=== PATIENT | female | born 1990 | race American Indian/Alaskan Native ===

== ENCOUNTER 2021-06-30 15:38 | Emergency (ER) | payer OTHER ==
[2021-06-30] MEDS ORDERED: BUTALB/ACETAMINOPHEN/CAFFEINE TAB PO ONE (19:35)
[2021-06-30] MEDS ORDERED: predniSONE 20 MG TAB PO ONE (19:35)
[2021-06-30] MEDS ORDERED: IBUPROFEN 600 MG TAB PO ONE (19:35)
--- NOTE | 2021-06-30 19:41 | Emergency Department Report ---
- General Chief Complaint: Sore Throat Stated Complaint: BODY PAINS Source: patient Mode of arrival: Ambulatory Limitations: No Limitations - History of Present Illness Initial Comments: Patient is a 30-year-old -[place] female with a history of morbid obesity presents to the ED with complaint of acute onset persistent nasal and sinus congestion, frontal sinus pressure and headache, sore throat, diffuse body aches and pains, subjective fever and chills and mild dry cough for the last 2 days, worse in the last 12 hours. Patient states that she has been taking [id number] decongestants with no relief. Patient states that no one else at home has had similar symptoms although her children started experiencing the symptoms in the last 8 hours. 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 Patient denies dizziness, syncope, chest pain or shortness of breath, nausea and vomiting or diarrhea, loss of taste or smell, lack of appetite, abdominal pain, dysuria, urine frequency and urgency, neck pain or change in vision. MD Complaint: fever, cough, sore throat, rhinorrhea, nasal congestion, sinus pain, other (Body aches) -: Sudden, days(s) (2) Severity: severe Severity scale (0 -10): 7 Quality: sharp, aching Consistency: constant Improves With: nothing Worsens With: nothing Context: sick contacts Associated Symptoms: denies other symptoms, fever, chills, myalgias, headache, rhinorrhea, nasal congestion, sore throat, cough. denies: chest pain, shortness of breath, abdominal pain, nausea, vomiting, diarrhea, dysuria, rash, confusion, right sweats, weight loss, epistaxis, hoarseness, ear pain, other Treatments Prior to Arrival: "cold medicine" - Related Data Previous Rx's Medication Instructions Recorded Last Taken Type Ascorbic Acid [Vitamin C] 1,000 mg PO Q12H #30 tablet 06/30/21 Unknown Rx Azithromycin [Zithromax Z-PRAVIN] 250 mg PO DAILY #6 tablet 06/30/21 Unknown Rx Butalb/Acetamin/Caff 50-325-40 1 - 2 tab PO Q6HR PRN #15 tab 06/30/21 Unknown Rx [Fioricet 50-325-40] Cetirizine HCl [Zyrtec 10mg tab] 10 mg PO DAILY #30 tablet 06/30/21 Unknown Rx Ibuprofen [Motrin] 600 mg PO Q8H PRN #30 tablet 06/30/21 Unknown Rx Lidocaine Viscous 2% 10 ml PO Q6H PRN #120 ml 06/30/21 Unknown Rx Ondansetron [Zofran Odt] 4 mg PO Q8HR PRN #15 tab.rapdis 06/30/21 Unknown Rx Allergies Allergy/AdvReac Type Severity Reaction Status Date / Time No Known Allergies Allergy Unverified 06/30/21 18:04 ED Review of Systems ROS: Stated complaint: BODY PAINS Other details as noted in HPI Constitutional: chills, fever, malaise Eyes: denies: eye pain, eye discharge, vision change ENT: throat pain, congestion, other (Severe frontal sinus pressure and headache). denies: ear pain Respiratory: cough. denies: shortness of breath, wheezing Cardiovascular: denies: chest pain, palpitations Endocrine: no symptoms reported Gastrointestinal: denies: abdominal pain, nausea, diarrhea Genitourinary: denies: urgency, dysuria, discharge Musculoskeletal: arthralgia, myalgia. denies: back pain, joint swelling Skin: denies: rash, lesions Neurological: headache (Frontal headache). denies: weakness, paresthesias Psychiatric: denies: anxiety, depression Hematological/Lymphatic: denies: easy bleeding, easy bruising ED Past Medical Hx - Past Medical History Previous Medical History?: No Additional medical history: denies - Surgical History Past Surgical History?: Yes Additional Surgical History: hernia repair - Medications Home Medications: Home Medications Medication Instructions Recorded Confirmed Last Taken Type Ascorbic Acid [Vitamin C] 1,000 mg PO Q12H #30 tablet 06/30/21 Unknown Rx Azithromycin [Zithromax Z-PRAVIN] 250 mg PO DAILY #6 tablet 06/30/21 Unknown Rx Butalb/Acetamin/Caff 50-325-40 1 - 2 tab PO Q6HR PRN #15 tab 06/30/21 Unknown Rx [Fioricet 50-325-40] Cetirizine HCl [Zyrtec 10mg tab] 10 mg PO DAILY #30 tablet 06/30/21 Unknown Rx Ibuprofen [Motrin] 600 mg PO Q8H PRN #30 tablet 06/30/21 Unknown Rx Lidocaine Viscous 2% 10 ml PO Q6H PRN #120 ml 06/30/21 Unknown Rx Ondansetron [Zofran Odt] 4 mg PO Q8HR PRN #15 tab.rapdis 06/30/21 Unknown Rx ED Physical Exam - General Limitations: No Limitations General appearance: alert, in no apparent distress - Head Head exam: Present: atraumatic, normocephalic, normal inspection - Eye Eye exam: Present: normal appearance, PERRL, EOMI Pupils: Present: normal accommodation - ENT ENT exam: Present: mucous membranes moist, TM's normal bilaterally, normal external ear exam, other (Erythematous oropharynx and tonsils; grossly congested nasal passages; palpable frontal and maxillary sinus tenderness) - Neck Neck exam: Present: normal inspection, full ROM - Respiratory Respiratory exam: Present: normal lung sounds bilaterally. Absent: respiratory distress, wheezes, rales, rhonchi, stridor, chest wall tenderness, accessory muscle use, decreased breath sounds - Cardiovascular Cardiovascular Exam: Present: normal rhythm, tachycardia, normal heart sounds. Absent: systolic murmur, diastolic murmur, rubs, gallop - GI/Abdominal GI/Abdominal exam: Present: soft, normal bowel sounds. Absent: tenderness, guarding, hyperactive bowel sounds, hypoactive bowel sounds, organomegaly - Extremities Exam Extremities exam: Present: normal inspection, full ROM, normal capillary refill - Back Exam Back exam: Present: normal inspection, full ROM. Absent: tenderness, CVA tenderness (R), CVA tenderness (L), muscle spasm, paraspinal tenderness, vertebral tenderness - Neurological Exam Neurological exam: Present: alert, oriented X3, CN II-XII intact, normal gait, reflexes normal - Psychiatric Psychiatric exam: Present: normal affect, normal mood - Skin Skin exam: Present: warm, dry, intact, normal color. Absent: rash ED Course Vital Signs 06/30/21 06/30/21 18:02 20:11 Temperature 99.0 F 99.2 F Pulse Rate 112 H 102 H Respiratory 18 20 Rate Blood Pressure 148/94 143/105 O2 Sat by Pulse 99 99 Oximetry ED Medical Decision Making - Medical Decision Making This is a 30-year-old -[place] female with a history of morbid obesity presents to the ED with complaint of acute onset persistent nasal and sinus congestion, frontal sinus pressure and headache, sore throat, diffuse body aches and pains, subjective fever and chills and mild dry cough for the last 2 days, worse in the last 12 hours. Patient states that she has been taking [id number] decongestants with no relief. Patient states that no one else at home has had similar symptoms although her children started experiencing the symptoms in the last 8 hours. 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 In the ED, patient is alert and oriented x3 and is not in any distress although she is tachycardic but afebrile in triage. Patient was treated for pain in the ED and on reevaluation, patient's pain is well controlled medications, tachycardia also improved and the patient was discharged home on medications and encouraged to go for COVID-19 diagnostic testing at any of the outpatient facilities and if positive to self quarantine at home while taking medications for 10 days. Patient was otherwise advised to follow-up with her primary care physician in 7 to 10 days for reevaluation or return to the ED immediately if symptoms get worse. - Differential Diagnosis sinusitis; URI; Pneumonia; Strep pharyngitis; Covid-19 Critical care attestation.: If time is entered above; I have spent that time in minutes in the direct care of this critically ill patient, excluding procedure time. ED Disposition Clinical Impression: Acute non-recurrent frontal sinusitis, Acute bacterial tonsillitis, Suspected COVID-19 virus infection Acute bronchitis Qualifiers: Bronchitis organism: unspecified organism Qualified Code(s): J20.9 - Acute bronchitis, unspecified Disposition: 01 HOME / SELF CARE / HOMELESS Is pt being admited?: No Does the pt Need Aspirin: No Condition: Stable Instructions: Tonsillitis, [id number], Sinusitis, Adult, [id number], Acute Bronchitis, Adult, [id number], Upper Respiratory Infection, Adult, [id number], Acute Bronchitis (ED) Additional Instructions: Take medication with food, drink plenty of fluids and follow-up with your primary care physician in 7 to 10 days for reevaluation. Return to the ED immediately if symptoms get worse. Consider going for COVID-19 diagnostic test at any of the outpatient facilities to ascertain your status. If positive self quarantine at home for 10 days while taking medications. Prescriptions: Butalb/Acetamin/Caff 50-325-40 [Fioricet 50-325-40] 1 - 2 tab PO Q6HR PRN #15 tab PRN Reason: Headache Lidocaine Viscous 2% 10 ml PO Q6H PRN #120 ml PRN Reason: Sore Throat Ibuprofen [Motrin] 600 mg PO Q8H PRN #30 tablet PRN Reason: Pain Ascorbic Acid [Vitamin C] 1,000 mg PO Q12H #30 tablet Azithromycin [Zithromax Z-PRAVIN] 250 mg PO DAILY #6 tablet Ondansetron [Zofran Odt] 4 mg PO Q8HR PRN #15 tab.rapdis PRN Reason: Nausea Cetirizine HCl [Zyrtec 10mg tab] 10 mg PO DAILY #30 tablet Referrals: [facility] [Provider Group] - 7-10 days Forms: Work/School Release Form(ED) Time of Disposition: 19:41 Print Language: ROMANIAN
[2021-06-30 20:12] VITALS: BP 143/105
== END 2021-06-30 19:44 | disposition home or self-care (01) ==
LOC: ED 15:38
DX: J01.11 Acute recurrent frontal sinusitis (principal); J03.90 Acute tonsillitis, unspecified; J20.9 Acute bronchitis, unspecified; Z20.822 Contact with and (suspected) exposure to COVID-19
CPT/HCPCS: 99282; J7512